=== PATIENT | female | born 1960 | race Caucasian/White ===

== ENCOUNTER 2023-01-09 01:10 | Inpatient (IN) | payer MEDICARE, OTHER ==
[2023-01-09] MEDS ORDERED: LORazepam 2 MG/ML INJ IV PRN (01:34)
[2023-01-09] MEDS ORDERED: THIAMINE 100 MG/ML 2 ML VIAL IM STA (01:34)
--- NOTE | 2023-01-09 03:02 | CT ---
EXAM: CT Head Without Intravenous Contrast CLINICAL HISTORY: ITS.REASON CT Reason: fall TECHNIQUE: Axial computed tomography images of the head/brain without intravenous contrast. CTDI is 45.28 mGy and DLP is 1147.5 mGy-cm. This CT exam was performed using one or more of the following dose reduction techniques: automated exposure control, adjustment of the mA and/or kV according to patient size, and/or use of iterative reconstruction technique. COMPARISON: No relevant prior studies available. FINDINGS: Brain: No hemorrhage or mass effect. Ventricles: No hydrocephalus. Bones/joints: Unremarkable. Soft tissues: Unremarkable. Sinuses: No air fluid level. Mastoid air cells: Clear. IMPRESSION: No acute hemorrhage, hydrocephalus, or mass effect. EXAM: CT Cervical Spine Without Intravenous Contrast CLINICAL HISTORY: ITS.REASON CT Reason: fall TECHNIQUE: Axial computed tomography images of the cervical spine without intravenous contrast. CTDI is 12.58 mGy and DLP is 337.9 mGy-cm. This CT exam was performed using one or more of the following dose reduction techniques: automated exposure control, adjustment of the mA and/or kV according to patient size, and/or use of iterative reconstruction technique. COMPARISON: No relevant prior studies available. FINDINGS: Vertebrae: No acute fracture. Post op changes. Discs/spinal canal/neural foramina: degenerative changes. Soft tissues: No prevertebral swelling. IMPRESSION: No acute fracture or subluxation.
--- NOTE | 2023-01-09 03:07 | XR ---
EXAM: XR Lumbosacral Spine, 2 or 3 Views CLINICAL HISTORY: ITS.REASON XR Reason: fall TECHNIQUE: Frontal and lateral views of the lumbar spine and sacrum. COMPARISON: No relevant prior studies available. FINDINGS: Vertebrae: No acute fracture. Normal sagittal alignment. Minimal levoscoliosis. Disc spaces: Mild degenerative changes L5-S1. Soft tissues: Unremarkable. IMPRESSION: No acute findings.
[2023-01-09] MEDS ORDERED: NALOXONE 0.4 MG/ML 1 ML VIAL IV PRN (03:44)
--- NOTE | 2023-01-09 03:45 | ED ---
Fall HPI - General Chief Complaint: Fall Stated Complaint: Fall Time Seen by Provider: 01/09/23 01:24 Source: patient Mode of arrival: EMS - History of Present Illness Initial Comments: 62-year-old female presenting from [place] for fall and alcohol withdrawal. Patient fell while getting up from a chair and hit the back of her head. No blood thinners or loss of consciousness. Patient's last alcoholic drink was 24 hours ago and normally drinks a pint to a pint and a half per day. 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 She admits to back pain. No neck pain, nausea, vomiting, dizziness, headache, vision or hearing changes, numbness, tingling, weakness, chest pain, difficulty breathing, abdominal pain. - Related Data Allergies Allergy/AdvReac Type Severity Reaction Status Date / Time Sulfa (Sulfonamide Allergy Rash/Hives Verified 01/09/23 01:40 Antibiotics) Review of Systems ROS Statement: Those systems with pertinent positive or pertinent negative responses have been documented in the HPI. ROS Other: All systems not noted in ROS Statement are negative. General Exam Limitations: no limitations General appearance: alert, in no apparent distress Head exam: Present: atraumatic, normocephalic, normal inspection Eye exam: Present: normal appearance, PERRL, EOMI. Absent: scleral icterus, con junctival injection, periorbital swelling Neck exam: Present: normal inspection, full ROM. Absent: tenderness Respiratory exam: Present: normal lung sounds bilaterally. Absent: respiratory distress, wheezes, rales, rhonchi, stridor Cardiovascular Exam: Present: regular rate, normal rhythm, normal heart sounds. Absent: systolic murmur, diastolic murmur, rubs, gallop, clicks Neurological exam: Present: alert, altered Psychiatric exam: Present: normal affect, normal mood Skin exam: Present: warm, dry, intact, normal color. Absent: rash Course Vital Signs 01/09/23 01/09/23 01:18 04:08 Temperature 97.5 F L Pulse Rate 96 94 Respiratory 18 20 Rate Blood Pressure 149/87 166/88 O2 Sat by Pulse 100 99 Oximetry Medical Decision Making - Medical Decision Making Was pt. sent in by a medical professional or institution (, PA, ROTOR BALANCER, urgent care, hospital, or [facility]...) When possible be specific @ -No Did you speak to anyone other than the patient for history (EMS, parent, family, police, friend...)? What history was obtained from this source @ -No Did you review nursing and triage notes (agree or disagree)? Why? @ -I reviewed and agree with nursing and triage notes Were old charts reviewed (outside hosp., previous admission, EMS record, old EKG, old radiological studies, urgent care reports/EKG's, [facility] records)? Report findings @ -No old charts were reviewed Differential Diagnosis (chest pain, altered mental status, abdominal pain women, abdominal pain men, vaginal bleeding, weakness, fever, dyspnea, syncope, headache, dizziness, GI bleed, back pain, seizure, CVA, palpatations, mental health, musculoskeletal)? MDM Differential Back Pain: Strain, zoster, cauda equina syndrome, epidural abscess, vertebral osteomyel itis, discitis, fracture, subluxation, disc herniation, DJD, spinal stenosis, dissection, AAA, pancreatitis, peptic ulcer disease, pyelonephritis, kidney stone this is not meant to be an all-inclusive list. EKG interpreted by me (3pts min.). @ -As above X-rays interpreted by me (1pt min.). @ -Negative x-ray of the lumbar spine CT interpreted by me (1pt min.). @ -Negative CT of the brain and cervical spine U/S interpreted by me (1pt. min.). @ -None done What testing was considered but not performed or refused? (CT, X-rays, U/S, labs)? Why? @ -None What meds were considered but not given or refused? Why? @ -None Did you discuss the management of the patient with other professionals (professionals i.e. , PA, ROTOR BALANCER, lab, RT, psych nurse, certified social workers in health care, credit representative, teacher, credit control officer, case operator)? Give summary @ -My attending [facility] who [facility] admission Was smoking cessation discussed for >3mins.? @ -No Was critical care preformed (if so, how long)? @ -No Were there social determinants of health that impacted care today? How? (Homelessness, low income, unemployed, alcoholism, drug addiction, transportation, low edu. Level, literacy, decrease access to med. care, long-term, rehab)? @ -No Was there de-escalation of care discussed even if they declined (Discuss DNR or withdrawal of care, Hospice)? DNR status @ -No What co-morbidities impacted this encounter? (DM, HTN, Smoking, COPD, CAD, Cancer, CVA, ARF, Chemo, Hep., AIDS, mental health diagnosis, sleep apnea, morbid obesity)? @ -None Was patient admitted / discharged? Hospital course, mention meds given and route, prescriptions, significant lab abnormalities, going to OR and other pertinent info. @ -62-year-old female presenting for evaluation post fall as well as alcohol withdrawal. She comes from [place]. No focal neurological deficits on physical exam. Patient has history of withdrawal seizures. Negative CT of the brain and cervical spine and x-ray of the lumbar spine. C-collar is removed. Patient will be admitted and placed on Cipro protocol. Patient is agreeable with this plan. I discussed this case with my attending Dr. Maradiaga Undiagnosed new problem with uncertain prognosis? @ -No Drug Therapy requiring intensive monitoring for toxicity (Heparin, Nitro, Insulin, Cardizem)? @ -No Were any procedures done? @ -No Diagnosis/symptom? @ -Alcohol withdrawal Acute, or Chronic, or Acute on Chronic? @ -Acute Uncomplicated (without systemic symptoms) or Complicated (systemic symptoms)? @ -Complicated Side effects of treatment? @ -No Exacerbation, Progression, or Severe Exacerbation? @ -No Poses a threat to life or bodily function? How? (Chest pain, USA, SD, pneumonia, PE, COPD, DKA, ARF, appy, cholecystitis, CVA, Diverticulitis, Homicidal, Suicidal, threat to staff... and all critical care pts) @ -Yes Disposition Clinical Impression: Alcohol withdrawal Disposition: ADMITTED IP TO THIS HOSP Condition: Fair Time of Disposition: 03:45
[2023-01-09] MEDS: LORazepam 2 MG/ML INJ IV PRN ×3 (03:56→23:04)
[2023-01-09] MEDS ORDERED: SODIUM CHLORIDE 0.9% 1,000 ML IV STA ×2 (06:07)
[2023-01-09 07:03] LABS: Basophils % (A) 1 %; Eosinophils # (A) 0.1 k/uL (0-0.7); Eosinophils % (A) 2 %; HCT 36.3 % (34.0-46.0); HGB 12.1 gm/dL (11.4-16.0); Lymphocytes # (A) 1.2 k/uL (1.0-4.8); Lymphocytes % (A) 40 %; MCH 33.6 pg (25.0-35.0); MCHC 33.4 g/dL (31.0-37.0); MCV 100.8 fL (80.0-100.0); Macrocytosis Slight; Mean Platelet Volume 7.7; Monocytes # (A) 0.2 k/uL (0-1.0); Monocytes % (A) 6 %; Neutrophils # (A) 1.5 k/uL (1.3-7.7); Neutrophils % (A) 50 %; Platelet Count 155 k/uL (150-450); RDW 15.5 % (11.5-15.5); WBC 2.9 k/uL (3.8-10.6)
[2023-01-09 07:16] LABS: ALT 23 U/L (4-34); AST 39 U/L (14-36); Acetaminophen <10.0 ug/mL; African American GFR (CKD) >90 (>60 ml/min/1.73 sqM); Albumin 3.5 g/dL (3.5-5.0); Albumin/Globulin Ratio 1.3; Alcohol <10 mg/dL; Alkaline Phosphatase 73 U/L (38-126); Anion Gap 6 mmol/L; Blood Urea Nitrogen 15 mg/dL (7-17); Calcium 8.2 mg/dL (8.4-10.2); Carbon Dioxide 24 mmol/L (22-30); Chloride 109 mmol/L (98-107); Globulin 2.6 g/dL; Glucose 97 mg/dL (74-99); Magnesium 1.6 mg/dL (1.6-2.3); Non-African American GFR(CKD) >90 (>60 ml/min/1.73 sqM); Phosphorus 3.6 mg/dL (2.5-4.5); Potassium 3.4 mmol/L (3.5-5.1); Salicylate <1.0 mg/dL; Sodium 139 mmol/L (137-145); Total Bilirubin 0.8 mg/dL (0.2-1.3); Total Protein 6.1 g/dL (6.3-8.2)
[2023-01-09] MEDS ORDERED: NON FORMULARY DRUG (Calcium/Magnesium/Zinc/Vitamin D 1 TAB) PO PRN (09:30)
[2023-01-09] MEDS ORDERED: MAG HYDROX/AL HYDROX/SIMETH 30 ML CUP PO PRN (09:30)
[2023-01-09] MEDS ORDERED: traZODone HCL 100 MG TAB PO PRN (09:30)
[2023-01-09] MEDS ORDERED: ONDANSETRON 4 MG/2 ML VIAL IVP PRN (09:30)
[2023-01-09] MEDS ORDERED: LOPERAMIDE 2 MG CAP PO PRN (09:30)
[2023-01-09] MEDS ORDERED: Potassium Replacement Protocol 1 EACH MISC MISCELLANE PRN (13:28)
[2023-01-09] MEDS ORDERED: Magnesium Replacement Protocol 1 EACH MISC MISCELLANE PRN (13:29)
[2023-01-09] MEDS ORDERED: MAGNESIUM SULFATE-D5W PMX 1 GM in DEXTROSE/WATER 1 100ML.BAG IVPB ONE (14:00)
[2023-01-09] MEDS: IBUPROFEN 600 MG TAB PO PRN ×2 (14:08→20:25)
[2023-01-09] MEDS: POTASSIUM CHLORIDE 10 MEQ in WATER FOR INJECTION 1 100ML.BAG IVPB SCH ×4 (14:18→17:51)
--- NOTE | 2023-01-09 16:03 | P.HPIM ---
History of Present Illness H&P Date: 01/09/23 This is a 62-year-old female who presented to the emergency department from [place] for falls with alcohol withdrawal. Patient's last drink was reportedly 24 hours ago and drinks about a pint to a pint and a half of liquor daily. Patient reports to alcohol-induced withdrawal seizures. Patient reports she was getting up from a chair and fell and struck her head. Patient denies having loss of consciousness and did report some back pain. In the ER CT of the head and cervical spine was done with no acute fracture or subluxation noted no hemorrhage or mass effect and no acute hydrocephalus or hemorrhage noted. Patient was admitted for alcohol withdrawal and placed on CIWA protocol with falls. This morning on exam patient is lethargic although arousable and falls back asleep easily although has received 2 doses of IV Ativan. Labs reviewed and CBC within normal limits, platelet count is 155, sodium 139, potassium 3.4, BUN 15, creatinine 0.71, lactic acid less than 0.5, magnesium 1.6 total bili 0.8 and serum alcohol was less than 10. Review Of Systems: Constitutional: No fever, no chills, no night sweats. No weight change. Reports of generalized weakness, fatigue and lethargy. No daytime sleepiness. EENT: No headache. No blurred vision or double vision, no loss of vision. No loss of Hearing, no ringing in the ears, no dizziness. No nasal drainage or congestion. No epistaxis. No sore throat. Lungs: No shortness of breath, cough, no sputum production. No wheezing. Cardiovascular: No chest pain, no lower extremity edema. No palpitations. No paroxysmal nocturnal dyspnea. No orthopnea. No lightheadedness or dizziness. No syncopal episodes. Abdominal: No abdominal pain. No nausea, vomiting. No diarrhea. No constipation. No bloody or tarry stools.. No loss of appetite. Genitourinary: No dysuria, increased frequency, urgency. No urinary retention. Musculoskeletal: No myalgias. No muscle weakness, no gait dysfunction, no frequent falls. No back pain. No neck pain. Integumentary: No wounds, no lesions. No rash or pruritus. No unusual bruisi ng. No change in hair or nails. Neurologic: No aphasia. No facial droop. No change in mentation. No head injury. No headache. No paralysis. No paresthesia. Psychiatric: No depression. No anxiety. No mood swings. Endocrine: No abnormal blood sugars. No weight change. No excessive sweating or thirst. No cold intolerance. PHYSICAL EXAMINATION: GENERAL: The patient is asleep although arousable and fatigues very quickly, alert 2, currently sedated after just receiving IV Ativan, Well developed, well nourished. HEENT: Pupils are round and equally reacting to light. EOMI. no scleral icterus. No conjunctival pallor. Normocephalic, atraumatic. No pharyngeal erythema. No thyromegaly. CARDIOVASCULAR: S1 and S2 muffled PULMONARY: diminished breath sounds bilaterally with no wheezing or rhonchi noted. ABDOMEN: soft. Nontender on exam. non-distended, normoactive bowel sounds. No palpable organomegaly. MUSCULOSKELETAL: No joint swelling or deformity. EXTREMITIES: No cyanosis, clubbing, or pedal edema. NEUROLOGICAL: Gross neurological examination did not reveal any focal deficits. Lethargic Diffuse weakness SKIN: No rashes. Assessment: Acute alcohol withdrawal Fall without loss of consciousness History of daily alcohol use with last drink being 24 hours Hypokalemia Hypomagnesemia History of anxiety/depression History of alcohol withdrawal induced seizures GI prophylaxis DVT prophylaxis Full code Plan: Recommend to continue with current medications and management with CIWA protocol. Recommend to replace electrolytes per protocol and continue gentle IV hydration Patient is lethargic although arousable and would encourage increase activity as tolerated. Patient has received 2 doses of IV Ativan and would recommend weaning as tolerated CT of the brain and neck was done with no acute process noted as patient did have a fall with no obvious head injuries although did report she struck her head. Patient was at [place] and will likely be returning there once stabilized Will follow-up with repeat labs in the a.m. Possible discharge in the next 24-48 hours The impression and plan of care has been dictated by nurse bibi Boothe ctitioner as directed. Dr. Blanka MD I have performed a history and examination and MDM of this patient, discussed the same with the dictator, and agree with the dictator's assessment and plan as written ,documented as a scribe. Based on total visit time, I have performed more than 50% of the visit. Any additional findings or plans will be noted. Past Medical History History of Any Multi-Drug Resistant Organisms: None Reported Past Psychological History: Anxiety, Depression Additional Psychological History / Comment(s): Not depression meds on list from [facility]. Smoking Status: Unknown if ever smoked Medications and Allergies Home Medications Medication Instructions Recorded Confirmed Type Acetaminophen Tab [Tylenol] 650 mg PO Q4H PRN 01/09/23 01/09/23 History Calcium/Magnesium/Zinc/Vitamin D 1 tab PO TID PRN 01/09/23 01/09/23 History Chlorpheniramine Maleate 4 mg PO Q6H PRN 01/09/23 01/09/23 History [Chlor-Trimeton] Ibuprofen [Motrin Ib] 600 mg PO Q6H PRN 01/09/23 01/09/23 History LORazepam [Ativan] 1 - 2 mg PO Q4H PRN 01/09/23 01/09/23 History Loperamide HCl [Imodium A-D] 4 mg PO QID PRN 01/09/23 01/09/23 History Mag Hydrox/Aluminum Hyd/Simeth 30 ml PO Q4H PRN 01/09/23 01/09/23 History [Mylanta Maximum Strength Liq] ondansetron HCL [Zofran] 8 mg PO Q6H PRN 01/09/23 01/09/23 History traZODone HCL [Desyrel] 50 - 150 mg PO HS PRN 01/09/23 01/09/23 History Allergies Allergy/AdvReac Type Severity Reaction Status Date / Time Sulfa (Sulfonamide Allergy Rash/Hives Verified 01/09/23 09:18 Antibiotics) Physical Exam Vitals: Vital Signs Temp Pulse Pulse Resp BP BP Pulse Ox 01/09/23 07:17 98.7 F 108 H 18 127/78 96 01/09/23 04:08 94 20 166/88 99 01/09/23 01:18 97.5 F L 96 18 149/87 100 Intake and Output 01/08/23 01/09/23 01/09/23 22:59 06:59 14:59 Other: Weight 61.689 kg 61.689 kg Results CBC & Chem 7: 01/09/23 06:47 01/09/23 06:47 Labs: Abnormal Lab Results - Last 24 Hours (Table) 01/09/23 01/09/23 01/09/23 Range/Units 06:47 06:47 06:47 WBC 2.9 L (3.8-10.6) k/uL RBC 3.60 L (3.80-5.40) m/uL MCV 100.8 H (80.0-100.0) fL Potassium 3.4 L (3.5-5.1) mmol/L Chloride 109 H (98-107) mmol/L Plasma Lactic Acid Hesham <0.5 L (0.7-2.0) mmol/L Calcium 8.2 L (8.4-10.2) mg/dL AST 39 H (14-36) U/L Total Protein 6.1 L (6.3-8.2) g/dL Assessment and Plan Time with Patient: Greater than 30
[2023-01-09] MEDS: chlordiazePOXIDE 25 MG CAP PO SCH ×2 (16:16→20:25)
[2023-01-09] MEDS: ACETAMINOPHEN TAB 325 MG TAB PO PRN ×2 (16:41→23:03)
[2023-01-09] MEDS: LORazepam 1 MG TAB PO PRN (18:27)
[2023-01-09] MEDS: PANTOPRAZOLE 40 MG/10 ML VIAL IVP SCH (20:25)
[2023-01-10] MEDS: IBUPROFEN 600 MG TAB PO PRN ×2 (03:18→13:05)
[2023-01-10] MEDS: LORazepam 1 MG TAB PO PRN ×2 (03:19→13:05)
[2023-01-10] MEDS: ACETAMINOPHEN TAB 325 MG TAB PO PRN (05:36)
[2023-01-10] MEDS: PANTOPRAZOLE 40 MG/10 ML VIAL IVP SCH (08:20)
[2023-01-10] MEDS: LORazepam 2 MG/ML INJ IV PRN (08:20)
[2023-01-10] MEDS: chlordiazePOXIDE 25 MG CAP PO SCH (08:21)
[2023-01-10 08:53] LABS: Blood Urea Nitrogen 6.9 mg/dL (9.0-27.0); Calcium 8.3 mg/dL (8.7-10.3); Carbon Dioxide 20.8 mmol/L (21.6-31.8); Chloride 111 mmol/L (96-109); Glucose 118 mg/dL (70-110); Magnesium 1.8 mg/dL (1.5-2.4); Potassium 3.8 mmol/L (3.5-5.5); Sodium 141 mmol/L (135-145)
[2023-01-10] MEDS ORDERED: THIAMINE 100 MG TAB PO SCH (09:00)
[2023-01-10 13:38] VITALS: BP 140/85; PULSE 65; RESP 19; TEMP 97.9
--- NOTE | 2023-01-11 16:55 | P.DS ---
Providers Date of admission: 01/09/23 03:45 Expected date of discharge: 01/10/23 Attending physician: Qiana Mccabe Primary care physician: Physician Nonstaff Hospital Course: Final diagnosis Acute alcohol withdrawal Fall without loss of consciousness History of daily alcohol use with last drink being 24 hours Hypokalemia Hypomagnesemia History of anxiety/depression History of alcohol withdrawal induced seizures GI prophylaxis DVT prophylaxis Full code Discharge disposition Patient is being discharged in a stable condition with guarded prognosis to [facility] for continued alcohol rehab. Patient will follow-up with long-time PCP in [facility] in the outpatient setting upon discharge. Patient was recently over here for [facility] and will be returning there. Total time taken is greater than 35 minutes. Hospital course This is a 62-year-old female who was recently admitted from [facility] for alcohol withdrawal and fall and struck head on the fall although no loss of consciousness and no head injury noted. Patient maintained on CIWA protocol and started on Librium taper with some electrolytes abnormalities which were replaced and improved. Patient is alert and oriented and initially wanting to go back home although is now agreeable to return to [place] to continue with rehab. Patient instructed to follow-up with her primary care provider in her hometown once discharged from rehab. Currently no reports of chest pain, shortness of breath, or palpitations. Patient is afebrile. No reports of nausea or vomiting and patient is tolerating diet. Patient will be discharged b ack to [facility] re[facility] today. Physical exam: Gen: This is a 62-year-old female who was awake, alert and oriented 3, thin built, elderly appearing HEENT: Head is atraumatic, normocephalic. Pupils equal, round. Sclerae is anicteric. NECK: Supple. No JVD. No lymphadenopathy. No thyromegaly. LUNGS: Clear to auscultation. No wheezes or rhonchi. No intercostal retractions. HEART: Regular rate and rhythm. No murmur. ABDOMEN: Soft. Bowel sounds are present. No masses. No tenderness. EXTREMITIES: No pedal edema. No calf tenderness. NEUROLOGICAL: Patient is awake, alert and oriented x3. Cranial nerves 2 through 12 are grossly intact. Please refer to medication reconciliation sheet for a list of medications. The impression and plan of care has been dictated by Missy Burkett, Nurse Practitioner as directed. Dr. Blanka MD I have performed a history and examination and MDM of this patient, discussed the same with the dictator, and agree with the dictator's assessment and plan as written ,documented as a scribe. Based on total visit time, I have performed more than 50% of the visit. Patient Condition at Discharge: Fair Plan - Discharge Summary New Discharge Prescriptions: New chlordiazePOXIDE HCl [Librium] 25 mg PO TID #6 cap Thiamine [Vitamin B-1] 100 mg PO DAILY 30 Days #30 tab Continue traZODone HCL [Desyrel] 50 - 150 mg PO HS PRN PRN Reason: Insomnia ondansetron HCL [Zofran] 8 mg PO Q6H PRN PRN Reason: Nausea And Vomiting Mag Hydrox/Aluminum Hyd/Simeth [Mylanta Maximum Strength Liq] 30 ml PO Q4H PRN PRN Reason: Gi Upset Ibuprofen [Motrin Ib] 600 mg PO Q6H PRN PRN Reason: Pain Acetaminophen Tab [Tylenol] 650 mg PO Q4H PRN PRN Reason: Fever And/ Or Pain Loperamide HCl [Imodium A-D] 4 mg PO QID PRN PRN Reason: Diarrhea Chlorpheniramine Maleate [Chlor-Trimeton] 4 mg PO Q6H PRN PRN Reason: Allergy Symptoms Calcium/Magnesium/Zinc/Vitamin D 1 tab PO TID PRN PRN Reason: Muscle Spasm LORazepam [Ativan] 1 - 2 mg PO Q4H PRN PRN Reason: Alcohol Withdrawal Discharge Medication List Acetaminophen Tab [Tylenol] 650 mg PO Q4H PRN 01/09/23 [History] Calcium/Magnesium/Zinc/Vitamin D 1 tab PO TID PRN 01/09/23 [History] Chlorpheniramine Maleate [Chlor-Trimeton] 4 mg PO Q6H PRN 01/09/23 [History] Ibuprofen [Motrin Ib] 600 mg PO Q6H PRN 01/09/23 [History] LORazepam [Ativan] 1 - 2 mg PO Q4H PRN 01/09/23 [History] Loperamide HCl [Imodium A-D] 4 mg PO QID PRN 01/09/23 [History] Mag Hydrox/Aluminum Hyd/Simeth [Mylanta Maximum Strength Liq] 30 ml PO Q4H PRN 01/09/23 [History] ondansetron HCL [Zofran] 8 mg PO Q6H PRN 01/09/23 [History] traZODone HCL [Desyrel] 50 - 150 mg PO HS PRN 01/09/23 [History] Thiamine [Vitamin B-1] 100 mg PO DAILY 30 Days #30 tab 01/10/23 [Rx] chlordiazePOXIDE HCl [Librium] 25 mg PO TID #6 cap 01/10/23 [Rx] Follow up Appointment(s)/Referral(s): Nonstaff,Physician [Primary Care Provider] - 1-2 days (Please call a primary doctor for appointment.) Activity/Diet/Wound Care/Special Instructions: Patient is returning to [place] Activity as tolerated Continue with Librium taper Continue with medications as prescribed Follow-up with primary care provider on discharge from rehab Discharge Disposition: OTHER INSTITUTION NOT DEFINED
== END 2023-01-10 15:12 | disposition home or self-care (01) | DRG 897 ==
LOC: EC 01:10 → 4SSUR 03:45
PROVIDERS: ADMIT Hospitalist; ATTEND Hospitalist
DX: F10.239 Alcohol dependence with withdrawal, unspecified (principal); E83.42 Hypomagnesemia; F32.A Depression, unspecified; F41.9 Anxiety disorder, unspecified; E87.6 Hypokalemia; W07.XXXA Fall from chair, initial encounter; Y90.0 Blood alcohol level of less than 20 mg/100 ml; Z88.2 Allergy status to sulfonamides
CPT/HCPCS: 70450; 72100; 72125; 80048; 80053; 80143; 80179; 80320; 83605; 83735; 84100; 85025; 96372; 96374; 99285